=== PATIENT | male | born 1965 | race Caucasian/White ===

== ENCOUNTER 2025-01-12 08:58 | Inpatient (IN) | payer OTHER ==
[~2025-01-12] VITALS: Ht 162.6 cm; Wt 79.4 kg
[2025-01-12] MEDS ORDERED: ANESTHESIA TRAY IN PYXIS 1 EA TRAY MC ONE (11:50)
[2025-01-12] MEDS ORDERED: FENTANYL PF 250MCG/5ML AMPUL ONE (12:27)
[2025-01-12] MEDS ORDERED: BUPIVACAINE MPF W/EPI 0.25% 30 ML VIAL ONE ×2 (12:44→15:16)
[2025-01-12] MEDS ORDERED: MAG HYDROX/AL HYDROX/SIMETH 30 ML UDC PO PRN (17:00)
[2025-01-12] MEDS ORDERED: ONDANSETRON HCL/PF 4 MG/2 ML VIAL IVP PRN (17:00)
[2025-01-12] MEDS ORDERED: MAGNESIUM HYDROXIDE 30 ML UDC PO PRN (17:00)
[2025-01-12] MEDS ORDERED: MORPHINE SULFATE INJ 2 MG/ML DISP.SYRIN IV PRN (17:00)
[2025-01-12 20:00] VITALS: BP 125/79; TEMP 98.2; O2SAT 99
[2025-01-13 06:50] LABS: BASOPHILS % (AUTO) 0.1 % (0.0-2.0); EOSINOPHILS % (AUTO) 0.3 % (0.0-6.0); HEMATOCRIT 38 % (39-51); HEMOGLOBIN 11.9 g/dL (13.5-17.5); LYMPHOCYTES # (AUTO) 1.1 K/uL (0.8-4.8); LYMPHOCYTES % (AUTO) 9.7 % (20.0-44.0); MEAN CORPUSCULAR HEMOGLOBIN 30 PG (26.0-33.0); MEAN CORPUSCULAR HGB CONC 32 g/dl (31.0-36.0); MEAN CORPUSCULAR VOLUME 95 fL (80-96); MONOCYTES # (AUTO) 0.8 K/uL (0.1-1.30); MONOCYTES % (AUTO) 7.4 % (2.0-12.0); NEUTROPHILS # (AUTO) 9.1 K/uL (1.8-8.9); NEUTROPHILS % (AUTO) 82.5 % (43.0-81.0); PLATELET COUNT (AUTO) 233 K/uL (150-450); RED BLOOD CELL COUNT(AUTO) 3.97 MIL/uL (4.5-6.0); RED CELL DISTRIBUTION WIDTH 13.2 % (11.5-15.0)
[2025-01-13 07:02] LABS: CALCIUM, SERUM 8.6 mg/dL (8.5-10.1); MAGNESIUM 2.1 mg/dL (1.8-2.4); POTASSIUM 4.7 mmol/L (3.5-5.1)
[2025-01-13] MEDS: PANTOPRAZOLE 40 MG TABLET.DR PO SCH (07:43)
[2025-01-13 08:00] VITALS: BP 138/87; TEMP 98.4; O2SAT 96
[2025-01-13] MEDS: ENOXAPARIN SODIUM 40 MG/0.4 ML DISP.SYRIN SQ SCH (09:00)
[2025-01-13] MEDS: ASPIRIN 81 MG TAB.CHEW PO SCH (11:21)
[2025-01-13] MEDS: POLYVINYL ALCOHOL 15 ML BOTTLE EACHEYE PRN (15:41)
[2025-01-13 16:00] VITALS: BP 135/80; TEMP 98.2; O2SAT 98
[2025-01-13] MEDS: ACETAMINOPHEN 325 MG TABLET PO PRN (19:15)
[2025-01-13 20:06] VITALS: BP 150/86; TEMP 97.5; O2SAT 98
[2025-01-14 07:30] VITALS: BP 140/85; TEMP 98.8; O2SAT 96
== END 2025-01-14 11:00 | disposition home or self-care (01) | DRG 494 ==
LOC: DS 08:58 → MED 16:24
PROVIDERS: ADMIT Nurse Practitioner Family; ATTEND Internal Medicine
PROC: 0QSH04Z Reposition Left Tibia with Internal Fixation Device, Open Approach (ICD-10-PCS; principal; 2025-01-12 11:25)
DX: S82.392A Other fracture of lower end of left tibia, initial encounter for closed fracture (principal); W19.XXXA Unspecified fall, initial encounter; R26.81 Unsteadiness on feet; Y93.9 Activity, unspecified; Y92.009 Unspecified place in unspecified non-institutional (private) residence as the place of occurrence of the external cause
CPT/HCPCS: 36415; 73590-TC; 80048-TC; 83735-TC; 84100-TC; 85025-TC; 97110-TC; 97116-TC; 97530-TC; A6403; G0378; J0690; J1650; J2704; J3010; J3490